=== PATIENT | male | born 1955 | race Caucasian/White ===

== ENCOUNTER → 2017-10-12 07:00 | Day surgery (SDC) | payer BC ==
[~2017-10-12 07:00] MED LIST: Lidocaine 1% INJ* 10 MG/ML 30 ML SDV ONE; Midazolam* 1 MG/ML 10 ML VIAL (10 MG) ONE; ceFAZolin 2 GM in NS 0.9% 100 ml IVPB ONE; ceFAZolin VIAL 1 GM in NS *SYRINGE * * 10 ML ONE; fentaNYL* 50 MCG/ML 2 ML VIAL (100 MCG VIAL) ONE
[2017-10-12 08:41] LABS: ABS Basophils 0 10^3/ul (0-0.2); ABS Eosinophils 0.3 10^3/ul (0-0.6); ABS Lymphocytes 1.4 10^3/ul (1.0-4.8); ABS Monocytes 0.6 10^3/ul (0-0.8); ABS Neutrophils 5.1 10^3/ul (1.5-7.7); ABS Nucleated RBC 0 10^3/ul; Eosinophil % 3.6 % (0-6); Hematocrit 46 % (42-52); Hemoglobin 15.9 g/dl (14.0-18.0); Lymphocyte % 19.5 % (25-47); Mean Corpuscular HGB Conc 35 g/dl (31-36); Mean Corpuscular Hemoglobin 31 pg (27-31); Mean Corpuscular Volume 91 fL (80-94); Mean Platelet Volume 8 um3 (7.4-10.4); Nucleated Red Blood Cells % 0; Platelet Count 151 10^3/ul (150-450); Red Blood Count 5.08 10^6/ul (4.0-5.4); Red Cell Distribution Width 14 % (10.5-15); White Blood Count 7.4 10^3/ul (3.5-10.8)
[2017-10-12 08:53] LABS: INR 0.94 (0.77-1.02)
[2017-10-12 08:54] LABS: EGFR Non-African American 70.5 (>60)
--- NOTE | 2017-10-12 22:50 | OP ---
CC: Jv Delvalle MD * DATE OF OPERATION: 10/12/17 - [facility] CATH DATE OF : 59 SURGEON: Dajuan Raya MD ANESTHESIA: Local anesthesia with conscious sedation. PRE-OP DIAGNOSIS: Ischemic cardiomyopathy, ICD at elective replacement indicator. POST-OP DIAGNOSIS: Ischemic cardiomyopathy, ICD at elective replacement indicator. OPERATIVE PROCEDURE: Single-chamber ICD generator change. ESTIMATED BLOOD LOSS: Nil. COMPLICATIONS: None. INDICATIONS: The patient is a 62-year-old gentleman with a history of ischemic cardiomyopathy, history of ICD implantation in 2006. The patient was lost to followup. He was seen by Dr. Delvalle and his ICD was unable to interrogated, likely battery was completely depleted. DESCRIPTION OF PROCEDURE: The patient was brought to the procedure room in a fasting state. Informed consent had been obtained prior to the procedure. All labs had been reviewed. The patient was placed supine on the procedure table. His left deltopectoral area was cleaned and draped in the usual fashion. 1% lidocaine was used for local anesthesia. A 4.5 cm incision was made at the pectoral area, blunt dissection was carried down to the fibrous sheath. The fibrous sheath was opened, there was extensive amount of scarring around the device. It took quite a while to free the device from the pocket. Ultimately, the device was removed from the pocket and detached from the ventricular lead. The ventricular lead was tested, noting an R-wave of 25.7, impedance 456 ohms, threshold 0.6 volts at 0.5 msec. The pocket was flushed with antibiotic infused normal saline. A new generator was attached appropriately to the atrioventricular lead. The new generator is a [employer] model [id number], serial #[id number]. The device was placed into the pocket. The surgical incision was closed in 3 layers. The explanted device is a [employer] model V168, serial #[id number]. The patient was returned to the holding area in stable condition. [id number]/[facility] #: [id number] [facility]ENTERKarson
== END | disposition home or self-care (01) ==
LOC: CHICATH 07:00
PROVIDERS: ATTEND Specialist
DX: I25.5 Ischemic cardiomyopathy (principal); I25.10 Atherosclerotic heart disease of native coronary artery without angina pectoris; Z45.02 Encounter for adjustment and management of automatic implantable cardiac defibrillator; Z95.1 Presence of aortocoronary bypass graft; I25.2 Old myocardial infarction; F17.210 Nicotine dependence, cigarettes, uncomplicated; E78.5 Hyperlipidemia, unspecified; I10 Essential (primary) hypertension; E03.9 Hypothyroidism, unspecified; M10.9 Gout, unspecified; Z85.51 Personal history of malignant neoplasm of bladder
CPT/HCPCS: 33262; 36415; 80048; 85025; 85610; 85730; 88300; 99156; 99157; C1722; J0690; J2250; J3010